=== PATIENT | female | born 2000 | race Caucasian/White ===

== ENCOUNTER 2020-07-07 21:52 | Emergency (ER) | payer SELFPAY ==
[~2020-07-07] VITALS: Ht 154.9 cm; Wt 55.9 kg
[2020-07-07 22:28] VITALS: TEMP 98
[2020-07-08 01:11] VITALS: BP 140/78; PULSE 75
== END 2020-07-08 01:11 | disposition home or self-care (01) ==
LOC: COL.ER 21:52
DX: S89.92XA Unspecified injury of left lower leg, initial encounter (principal); V29.9XXA Motorcycle rider (driver) (passenger) injured in unspecified traffic accident, initial encounter; Y92.89 Other specified places as the place of occurrence of the external cause

== ENCOUNTER 2023-03-29 16:11 | Emergency (ER) | payer SELFPAY ==
[~2023-03-29] VITALS: Ht 152.4 cm; Wt 52.3 kg
[2023-03-29 16:17] VITALS: TEMP 99
[2023-03-29 19:49] VITALS: BP 116/78; PULSE 84
== END 2023-03-29 19:49 | disposition home or self-care (01) ==
LOC: COL.ER 16:11
DX: O26.891 Other specified pregnancy related conditions, first trimester (principal); R10.9 Unspecified abdominal pain; Z3A.01 Less than 8 weeks gestation of pregnancy